=== PATIENT | female | born 1950 | race African-American/Black ===

== ENCOUNTER 2017-07-07 04:55 | Inpatient (IN) ==
[2017-07-07] MEDS ORDERED: DILTIAZEM 50 MG/10 ML VIAL IV STA ×3 (05:18→07:02)
[2017-07-07] MEDS ORDERED: DILTIAZEM INJ 100 MG in SODIUM CHLORIDE 0.9% 100 ML IV SCH (05:30)
[2017-07-07 05:45] LABS: Basophils % 0.2 % (0.0-0.8); Eosinophils # 0.2 10*3/uL (0.0-0.87); Eosinophils % 1.6 % (0.00-10.9); Hemoglobin 11.8 GM/DL (12.0-16.0); Immature Granulocytes % 0.2 %; Immature Granulocytes Absolute 0.02 #; Lymphocytes # 1.6 10*3/uL (1.4-4.0); Lymphocytes % 16.5 % (21.3-54.2); Mean Corpuscular HGB Conc 31.1 GM/DL (32-36); Mean Corpuscular Hemoglobin 27 PG (27-34); Mean Corpuscular Volume 87.6 FL (87-102); Mean Platelet Volume 11.3 FL (9.6-12.0); Monocytes # 0.7 10*3/uL (0.11-0.8); Monocytes % 7.3 % (1.7-12.7); Neutrophils # 7.1 10*3/uL (1.4-7.4); Neutrophils % 74.2 % (38.7-73.9); Platelet Count 331 T/CUMM (130-400); Red Blood Count 4.34 MC/CUMM (3.8-5.5); Red Cell Distribution Width 17.6 % (9.3-17.3); White Blood Count 9.6 T/CUMM (4-12)
[2017-07-07] MEDS ORDERED: SODIUM CHLORIDE 0.9% 1,000 ML IV STA (05:58)
[2017-07-07 06:21] LABS: Alanine Aminotransferase 38 U/L (13-56); Albumin 3.8 G/DL (3.4-5.0); Alkaline Phosphatase 101 U/L (45-117); Aspartate Amino Transferase 24 U/L (0-37); Bilirubin,Total < 0.39 MG/DL (0.2-1.0); Blood Urea Nitrogen 21 MG/DL (7-18); Calcium 10.2 MG/DL (8.5-10.1); Glucose 177 MG/DL (74-106); Osmolality,Calculated 283.5 MOS/KG (273-304); Potassium 4.1 MMOL/L (3.5-5.1); Sodium 139 MMOL/L (136-145); Total Protein 8.2 G/DL (6.4-8.3); Troponin I Only < 0.015 NG/ML (0.00-0.045)
[2017-07-07] MEDS ORDERED: ACETAMINOPHEN 325 MG TABLET PO PRN (07:53)
[2017-07-07] MEDS ORDERED: ONDANSETRON 4 MG/2 ML VIAL IV PRN (07:53)
[2017-07-07] MEDS ORDERED: NITROGLYCERIN SL 0.4 MG TABLET SL PRN (07:55)
[2017-07-07] MEDS ORDERED: PROMETHAZINE 25 MG TABLET PO PRN (07:55)
[2017-07-07] MEDS ORDERED: FLUTICASONE 50 MCG NASAL SPRAY 16 GM BOTTLE BOTH NARES PRN (07:55)
[2017-07-07] MEDS ORDERED: GLUCAGON 1 MG VIAL IM PRN (07:57)
[2017-07-07] MEDS ORDERED: DEXTROSE 50% 25 GM/50 ML VIAL IV PRN (07:57)
[2017-07-07] MEDS ORDERED: INSULIN ASPART 5 UNIT SUBCUT SCH (08:00)
[2017-07-07] MEDS ORDERED: METOPROLOL SUCCINATE XL 100 MG TABLET PO SCH (09:00)
[2017-07-07] MEDS ORDERED: SPIRONOLACTONE 25 MG TABLET PO SCH (09:00)
[2017-07-07] MEDS ORDERED: INSULIN GLARGINE HUM REC ANLOG 45 UNIT SUBCUT SCH (09:00)
[2017-07-07] MEDS ORDERED: QUINAPRIL HCL 20 MG PO SCH (09:00)
[2017-07-07] MEDS ORDERED: METOPROLOL TARTRATE 50 MG TABLET PO STA (10:16)
[2017-07-07] MEDS: PANTOPRAZOLE 40 MG TABLET PO SCH (13:03)
[2017-07-07] MEDS: INSULIN LISPRO 100 UNIT/ML SUBCUT SCH ×3 (13:08→20:37)
[2017-07-07] MEDS: POTASSIUM CHLORIDE 20 MEQ TABLET PO SCH (14:30)
[2017-07-07] MEDS: FUROSEMIDE 40 MG TABLET PO SCH ×2 (14:31→20:38)
[2017-07-07] MEDS: ASCORBIC ACID 500 MG TABLET PO SCH (14:32)
[2017-07-07] MEDS: AMIODARONE 200 MG TABLET PO SCH ×2 (14:32→20:37)
[2017-07-07] MEDS: CETIRIZINE 10 MG TABLET PO SCH (14:32)
[2017-07-07] MEDS: FOLIC ACID 1 MG TABLET PO SCH (14:33)
[2017-07-07] MEDS: DOCUSATE SODIUM 100 MG CAPSULE PO SCH ×2 (14:33→20:38)
[2017-07-07] MEDS: ATORVASTATIN 20 MG TABLET PO SCH (14:33)
[2017-07-07] MEDS: OMEGA 3 ACID ETHYL ESTERS 1 GM CAPSULE PO SCH (14:33)
[2017-07-07] MEDS: ASPIRIN EC 81 MG TABLET PO SCH (14:33)
[2017-07-07] MEDS: CYCLOBENZAPRINE 10 MG TABLET PO SCH ×3 (14:37→20:38)
[2017-07-07] MEDS: FERROUS SULFATE 325 MG TABLET PO SCH ×2 (14:37→20:38)
[2017-07-07 17:49] LABS: Apearance,Urine CLEAR (Clear); Bilirubin,Urine Negative (Negative); Blood, Urine Negative (Negative); Glucose,Urine (UA) Negative (Negative); Ketones,Urine Negative (Negative); Nitrite,Urine Negative (Negative); Protein,Urine Negative; RBC,Urine <1 /HPF (0-4); Squamous Epithelial Cell,Urine Occasional /HPF (0-10); Urine Color Yellow (Yellow); Urine Urobilinogen < 2.0 EU/DL (0.2-1.0); WBC,Urine <1 /HPF (0-6)
[2017-07-07] MEDS ORDERED: ALBUTEROL 2.5 MG/3 ML NEB RESP TX PRN (19:00)
[2017-07-08 06:12] LABS: Basophils % 0.3 % (0.0-0.8); Eosinophils # 0.2 10*3/uL (0.0-0.87); Eosinophils % 2.9 % (0.00-10.9); Hematocrit 31.6 VOL% (35.7-47.0); Hemoglobin 10.2 GM/DL (12.0-16.0); Immature Granulocytes % 0.2 %; Immature Granulocytes Absolute 0.01 #; Lymphocytes # 0.9 10*3/uL (1.4-4.0); Lymphocytes % 15.8 % (21.3-54.2); Mean Corpuscular HGB Conc 32.3 GM/DL (32-36); Mean Corpuscular Hemoglobin 28 PG (27-34); Mean Corpuscular Volume 85.2 FL (87-102); Mean Platelet Volume 10.6 FL (9.6-12.0); Monocytes # 0.4 10*3/uL (0.11-0.8); Monocytes % 5.9 % (1.7-12.7); Neutrophils # 4.4 10*3/uL (1.4-7.4); Neutrophils % 74.9 % (38.7-73.9); Platelet Count 279 T/CUMM (130-400); Red Blood Count 3.71 MC/CUMM (3.8-5.5); Red Cell Distribution Width 17.6 % (9.3-17.3); White Blood Count 5.9 T/CUMM (4-12)
[2017-07-08 06:30] LABS: Calcium 8.9 MG/DL (8.5-10.1); Osmolality,Calculated 290.4 MOS/KG (273-304); Potassium 3.9 MMOL/L (3.5-5.1)
[2017-07-08 06:34] LABS: Calcium 8.7 MG/DL (8.5-10.1); Osmolality,Calculated 293.1 MOS/KG (273-304); Risk Ratio 3.6; VLDL CHOLESTEROL 34.4 MG/DL
[2017-07-08] MEDS ORDERED: LEVOTHYROXINE 25 MCG TABLET PO SCH (07:00)
[2017-07-08] MEDS ORDERED: ERGOCALCIFEROL 50,000 UNIT CAPSULE PO SCH (07:55)
[2017-07-08] MEDS: PANTOPRAZOLE 40 MG TABLET PO SCH (08:11)
[2017-07-08] MEDS: ATORVASTATIN 20 MG TABLET PO SCH (08:11)
[2017-07-08] MEDS: OMEGA 3 ACID ETHYL ESTERS 1 GM CAPSULE PO SCH (08:11)
[2017-07-08] MEDS: CYCLOBENZAPRINE 10 MG TABLET PO SCH (08:12)
[2017-07-08] MEDS: DOCUSATE SODIUM 100 MG CAPSULE PO SCH (08:12)
[2017-07-08] MEDS: ASPIRIN EC 81 MG TABLET PO SCH (08:12)
[2017-07-08] MEDS: FERROUS SULFATE 325 MG TABLET PO SCH (08:12)
[2017-07-08] MEDS: FUROSEMIDE 40 MG TABLET PO SCH (08:12)
[2017-07-08] MEDS: CETIRIZINE 10 MG TABLET PO SCH (08:12)
[2017-07-08] MEDS: ASCORBIC ACID 500 MG TABLET PO SCH (08:12)
[2017-07-08] MEDS: POTASSIUM CHLORIDE 20 MEQ TABLET PO SCH (08:12)
[2017-07-08] MEDS: FOLIC ACID 1 MG TABLET PO SCH (08:12)
[2017-07-08] MEDS: INSULIN LISPRO 100 UNIT/ML SUBCUT SCH ×2 (08:13→12:11)
[2017-07-08] MEDS ORDERED: AMIODARONE 200 MG TABLET PO SCH (09:00)
[2017-07-08] MEDS ORDERED: INSULIN GLARGINE 100 UNIT/ML SUBCUT SCH (09:00)
[2017-07-08] MEDS ORDERED: MAGNESIUM SULF RIDER 2 GM in PREMIX 1 EACH IV ONE (10:17)
[2017-07-08] MEDS ORDERED: MAGNESIUM CHLORIDE 64 MG TABLET PO SCH (10:30)
[2017-07-08 12:14] VITALS: BP 139/72
[2017-07-08] MEDS ORDERED: METOPROLOL TARTRATE 25 MG TABLET PO SCH (21:00)
[2017-07-15] MEDS ORDERED: AMIODARONE 200 MG TABLET PO SCH (09:00)
== END 2017-07-08 13:20 | disposition home or self-care (01) | DRG 309 ==
LOC: N.ED 04:55 → N.EDINP 07:33 → N.TELES 12:46
PROVIDERS: ADMIT Internal Medicine; ATTEND Internal Medicine

== ENCOUNTER 2021-11-25 11:45 | Inpatient (IN) ==
[2021-11-25] MEDS ORDERED: DILTIAZEM 25 MG/5 ML VIAL IV STA (12:10)
[2021-11-25] MEDS: DILTIAZEM INJ 100 MG in SODIUM CHLORIDE 0.9% 100 ML IV SCH ×2 (12:30→18:51)
[2021-11-25 12:35] LABS: PT Patient Result 11.4 SECS (10.1-12.1); Partial Thromboplastin Time 26.6 SECS (23.7-32.9)
[2021-11-25 12:37] LABS: Bilirubin,Total 0.8 MG/DL (0.20-1.00); Potassium 3.7 MMOL/L (3.5-5.1); Thyroid Stimulating Hormone 6.42 uIU/ml (0.358-3.74); Total Protein 7.8 G/DL (6.4-8.2)
[2021-11-25 12:40] LABS: Basophils % 0.4 % (0.0-0.8); Eosinophils # 0.1 10*3/uL (0.0-0.87); Hematocrit 44.9 VOL% (35.7-47.0); Hemoglobin 13.6 GM/DL (12.0-16.0); Immature Granulocytes % 0.3 %; Immature Granulocytes Absolute 0.02 #; Lymphocytes # 1.1 10*3/uL (1.4-4.0); Mean Corpuscular HGB Conc 30.3 GM/DL (32-36); Mean Corpuscular Volume 89.1 FL (87-102); Monocytes # 0.7 10*3/uL (0.11-0.8); Monocytes % 9.3 % (1.7-12.7); Platelet Count 344 T/CUMM (130-400); Red Blood Count 5.04 MC/CUMM (3.8-5.5); Red Cell Distribution Width 17.5 % (9.3-17.3); White Blood Count 7.2 T/CUMM (4-12)
[2021-11-25] MEDS ORDERED: ONDANSETRON 4 MG/2 ML VIAL IV PRN (13:52)
[2021-11-25] MEDS ORDERED: DEXTROSE 10% 250 ML BAG IV PRN (13:52)
[2021-11-25] MEDS ORDERED: ACETAMINOPHEN 325 MG TABLET PO PRN (13:52)
[2021-11-25] MEDS ORDERED: GLUCAGON 1 MG VIAL IM PRN (13:52)
[2021-11-25] MEDS ORDERED: hydrALAZINE 20 MG/1 ML VIAL IV PRN (13:52)
[2021-11-25] MEDS ORDERED: ENOXAPARIN 40 MG/0.4 ML SYRINGE SUBCUT SCH (14:00)
[2021-11-25 14:26] LABS: Free T4 (Free Thyroxine) 1.53 NG/DL (0.76-1.46)
[2021-11-25] MEDS ORDERED: ENOXAPARIN 100 MG/ML SYRINGE SUBCUT ONE (16:00)
[2021-11-25] MEDS ORDERED: INFLUENZA VIRUS VACCINE 0.5 ML SYRINGE IM ONE (17:07)
[2021-11-25] MEDS: INSULIN LISPRO 100 UNIT/ML SUBCUT SCH ×2 (17:52→21:57)
[2021-11-25 19:39] LABS: Bacteria,Urine Occasional /HPF (Few); Glucose,Urine (UA) >1000 mg/dL (Negative); Hyaline Casts,Urine 1 /LPF (0-3); Ketones,Urine 15 mg/dL (Negative); Mucus,Urine Occasional /LPF (Occasional); Protein,Urine 30 mg/dL (Negative); RBC,Urine <1 /HPF (0-4); Squamous Epithelial Cell,Urine Occasional /HPF (0-10); Urine Appearance Clear (Clear); Urine Color Yellow (Yellow); Urine pH 6.5 (4.5-8.0)
[2021-11-25 19:40] LABS: Bilirubin,Urine Negative (Negative); Blood, Urine Negative (Negative); Nitrite,Urine Negative (Negative); Urine Urobilinogen 0.2 eU/dL (<2.0)
[2021-11-25 20:58] LABS: Barbiturates Screen,Urine Negative (Negative); Benzodiazepines Screen,Urine Negative (Negative); Cannabinoid Screen,Urine Negative (Negative); Opiate Screen,Urine Negative (Negative); Phencyclidine Screen,Urine Negative (Negative)
[2021-11-25] MEDS: ASCORBIC ACID 500 MG TABLET PO SCH (21:59)
[2021-11-25] MEDS: AMIODARONE 200 MG TABLET PO SCH (21:59)
[2021-11-25] MEDS: FUROSEMIDE 40 MG TABLET PO SCH (22:12)
[2021-11-26] MEDS: DILTIAZEM INJ 100 MG in SODIUM CHLORIDE 0.9% 100 ML IV SCH ×3 (01:22→14:26)
[2021-11-26] MEDS: ENOXAPARIN 150 MG/ML SYRINGE SUBCUT SCH ×2 (04:25→14:28)
[2021-11-26 05:09] LABS: Basophils % 0.6 % (0.0-0.8); Eosinophils # 0.1 10*3/uL (0.0-0.87); Eosinophils % 1.6 % (0.00-10.9); Hematocrit 40.2 VOL% (35.7-47.0); Hemoglobin 12.3 GM/DL (12.0-16.0); Immature Granulocytes % 0.1 %; Immature Granulocytes Absolute 0.01 #; Lymphocytes # 1.2 10*3/uL (1.4-4.0); Lymphocytes % 17.7 % (21.3-54.2); Mean Corpuscular HGB Conc 30.6 GM/DL (32-36); Mean Corpuscular Volume 89.5 FL (87-102); Mean Platelet Volume 10.3 FL (9.6-12.0); Monocytes # 0.6 10*3/uL (0.11-0.8); Monocytes % 8.9 % (1.7-12.7); Neutrophils % 71.1 % (38.7-73.9); Platelet Count 293 T/CUMM (130-400); Red Blood Count 4.49 MC/CUMM (3.8-5.5); Red Cell Distribution Width 17.3 % (9.3-17.3)
[2021-11-26 05:32] LABS: Osmolality,Calculated 286.1 MOS/KG (273-304); Potassium 3.7 MMOL/L (3.5-5.1); Risk Ratio 3.5; VLDL Cholesterol 28.4 MG/DL
[2021-11-26] MEDS: ASCORBIC ACID 500 MG TABLET PO SCH ×2 (08:22→21:46)
[2021-11-26] MEDS: FUROSEMIDE 40 MG TABLET PO SCH ×2 (08:23→22:16)
[2021-11-26] MEDS: ATORVASTATIN 40 MG TABLET PO SCH (08:24)
[2021-11-26] MEDS: AMIODARONE 200 MG TABLET PO SCH (08:24)
[2021-11-26] MEDS: SPIRONOLACTONE 25 MG TABLET PO SCH (08:24)
[2021-11-26] MEDS: PANTOPRAZOLE 40 MG TABLET PO SCH (08:24)
[2021-11-26] MEDS: ENALAPRIL 20 MG TABLET PO SCH (08:24)
[2021-11-26] MEDS: INSULIN LISPRO 100 UNIT/ML SUBCUT SCH ×4 (08:42→21:46)
[2021-11-26] MEDS: LEVOTHYROXINE 50 MCG TABLET PO SCH (08:46)
[2021-11-26] MEDS ORDERED: METOPROLOL SUCCINATE XL 25 MG TABLET PO SCH (09:30)
[2021-11-26] MEDS ORDERED: SIMETHICONE CHEW 125 MG TABLET PO PRN (12:21)
[2021-11-26] MEDS ORDERED: AMIODARONE INJ 150 MG in DEXTROSE 5% 100 ML IV ONE (13:31)
[2021-11-26] MEDS ORDERED: AMIODARONE INJ 450 MG in DEXTROSE 5% 241 ML IV SCH (14:00)
[2021-11-26] MEDS: METOPROLOL SUCCINATE XL 25 MG TABLET PO SCH (21:46)
[2021-11-27] MEDS: AMIODARONE INJ 450 MG in DEXTROSE 5% 241 ML IV SCH ×2 (00:29→14:04)
[2021-11-27 04:40] LABS: Basophils % 0.6 % (0.0-0.8); Eosinophils # 0.2 10*3/uL (0.0-0.87); Eosinophils % 2.6 % (0.00-10.9); Hematocrit 40.5 VOL% (35.7-47.0); Hemoglobin 12.4 GM/DL (12.0-16.0); Immature Granulocytes % 0.6 %; Immature Granulocytes Absolute 0.04 #; Lymphocytes # 1.5 10*3/uL (1.4-4.0); Lymphocytes % 21.7 % (21.3-54.2); Mean Corpuscular HGB Conc 30.6 GM/DL (32-36); Mean Corpuscular Volume 88.6 FL (87-102); Monocytes # 0.7 10*3/uL (0.11-0.8); Neutrophils % 64.5 % (38.7-73.9); Platelet Count 309 T/CUMM (130-400); Red Blood Count 4.57 MC/CUMM (3.8-5.5); Red Cell Distribution Width 17.3 % (9.3-17.3)
[2021-11-27 04:54] LABS: Calcium 8.5 MG/DL (8.5-10.1); Potassium 3.2 MMOL/L (3.5-5.1)
[2021-11-27] MEDS: DILTIAZEM INJ 100 MG in SODIUM CHLORIDE 0.9% 100 ML IV SCH (06:10)
[2021-11-27] MEDS: ENOXAPARIN 150 MG/ML SYRINGE SUBCUT SCH ×2 (06:12→14:25)
[2021-11-27] MEDS: LEVOTHYROXINE 50 MCG TABLET PO SCH (06:46)
[2021-11-27] MEDS: PANTOPRAZOLE 40 MG TABLET PO SCH (09:30)
[2021-11-27] MEDS: ASPIRIN EC 81 MG TABLET PO SCH (09:30)
[2021-11-27] MEDS: SPIRONOLACTONE 25 MG TABLET PO SCH (09:30)
[2021-11-27] MEDS: ASCORBIC ACID 500 MG TABLET PO SCH ×2 (09:30→22:11)
[2021-11-27] MEDS: AMIODARONE 200 MG TABLET PO SCH (09:30)
[2021-11-27] MEDS: ATORVASTATIN 40 MG TABLET PO SCH (09:30)
[2021-11-27] MEDS: ENALAPRIL 20 MG TABLET PO SCH (11:20)
[2021-11-27] MEDS: FUROSEMIDE 40 MG TABLET PO SCH ×2 (11:20→22:12)
[2021-11-27] MEDS: METOPROLOL SUCCINATE XL 50 MG TABLET PO SCH ×2 (11:20→22:12)
[2021-11-27] MEDS ORDERED: POTASSIUM CHLORIDE 20 MEQ TABLET PO ONE (11:44)
[2021-11-27] MEDS: INSULIN LISPRO 100 UNIT/ML SUBCUT SCH ×4 (13:56→22:11)
[2021-11-27] MEDS: METOPROLOL SUCCINATE XL 25 MG TABLET PO SCH (13:59)
[2021-11-27] MEDS: hydrALAZINE 25 MG TABLET PO SCH ×2 (14:25→22:11)
[2021-11-28] MEDS: ENOXAPARIN 150 MG/ML SYRINGE SUBCUT SCH (02:25)
[2021-11-28] MEDS: AMIODARONE INJ 450 MG in DEXTROSE 5% 241 ML IV SCH (02:27)
[2021-11-28] MEDS: LEVOTHYROXINE 50 MCG TABLET PO SCH (06:28)
[2021-11-28] MEDS ORDERED: METOPROLOL SUCCINATE XL 100 MG TABLET PO SCH (09:00)
[2021-11-28] MEDS: FUROSEMIDE 40 MG TABLET PO SCH (09:31)
[2021-11-28] MEDS: INSULIN LISPRO 100 UNIT/ML SUBCUT SCH ×2 (09:31→12:45)
[2021-11-28] MEDS: SPIRONOLACTONE 25 MG TABLET PO SCH (09:31)
[2021-11-28] MEDS: ATORVASTATIN 40 MG TABLET PO SCH (09:32)
[2021-11-28] MEDS: ASCORBIC ACID 500 MG TABLET PO SCH (09:32)
[2021-11-28] MEDS: ENALAPRIL 20 MG TABLET PO SCH (09:32)
[2021-11-28] MEDS: PANTOPRAZOLE 40 MG TABLET PO SCH (09:32)
[2021-11-28] MEDS: AMIODARONE 200 MG TABLET PO SCH (09:32)
[2021-11-28] MEDS: ASPIRIN EC 81 MG TABLET PO SCH (09:33)
[2021-11-28 09:57] LABS: Calcium 8.2 MG/DL (8.5-10.1); Potassium 3.3 MMOL/L (3.5-5.1)
[2021-11-28 10:08] LABS: Albumin 3.3 G/DL (3.4-5.0); Bilirubin,Direct 0.19 MG/DL (0.0-0.20); Bilirubin,Indirect 0.4 MG/DL (0.0-1.0); Bilirubin,Total 0.6 MG/DL (0.20-1.00); Total Protein 6.4 G/DL (6.4-8.2)
[2021-11-28] MEDS ORDERED: POTASSIUM CHLORIDE 20 MEQ TABLET PO ONE (10:27)
[2021-11-28 12:03] VITALS: BP 102/63
== END 2021-11-28 13:04 | disposition home health service (06) | DRG 309 ==
LOC: EDUNIT# → EDBD → N.EDINP 11:45 → N.ED 11:45 → SUATTDRO 13:52 → N.TELES 15:55 → SUATTDRO 11-26 12:22
PROVIDERS: ADMIT Internal Medicine; ATTEND Internal Medicine Geriatric Medicine

== ENCOUNTER 2021-12-03 13:15 | Inpatient (IN) ==
[2021-12-03] MEDS ORDERED: DILTIAZEM 25 MG/5 ML VIAL IV ONE (13:37)
[2021-12-03] MEDS ORDERED: DILTIAZEM 100 MG VIAL.ADD IV ONE (13:37)
[2021-12-03] MEDS ORDERED: DILTIAZEM 25 MG/5 ML VIAL IV STA (13:55)
[2021-12-03] MEDS ORDERED: DILTIAZEM 50 MG/10 ML VIAL IV STA (14:02)
[2021-12-03] MEDS: DILTIAZEM INJ 100 MG in SODIUM CHLORIDE 0.9% 100 ML IV SCH (14:04)
[2021-12-03 14:46] LABS: Albumin 2.9 G/DL (3.4-5.0); Bilirubin,Total 1.5 MG/DL (0.20-1.00); Calcium 8.8 MG/DL (8.5-10.1); Osmolality,Calculated 287.5 MOS/KG (273-304); Potassium 4.5 MMOL/L (3.5-5.1); Total Protein 6.5 G/DL (6.4-8.2)
[2021-12-03 15:18] LABS: Basophils % 0.4 % (0.0-0.8); Eosinophils # 0.2 10*3/uL (0.0-0.87); Eosinophils % 1.8 % (0.00-10.9); Hematocrit 23.8 VOL% (35.7-47.0); Hemoglobin 6.8 GM/DL (12.0-16.0); Immature Granulocytes % 0.5 %; Immature Granulocytes Absolute 0.04 #; Lymphocytes % 12.1 % (21.3-54.2); Mean Corpuscular HGB Conc 28.6 GM/DL (32-36); Mean Corpuscular Volume 95.6 FL (87-102); Mean Platelet Volume 11.3 FL (9.6-12.0); Monocytes # 0.8 10*3/uL (0.11-0.8); Monocytes % 9.2 % (1.7-12.7); NRBC # 0.21 10*3/uL; Platelet Count 326 T/CUMM (130-400); Red Blood Count 2.49 MC/CUMM (3.8-5.5); White Blood Count 8.4 T/CUMM (4-12)
[2021-12-03 15:53] LABS: Basophils % 0.5 % (0.0-0.8); Eosinophils # 0.1 10*3/uL (0.0-0.87); Eosinophils % 1.3 % (0.00-10.9); Hematocrit 22.6 VOL% (35.7-47.0); Hemoglobin 6.7 GM/DL (12.0-16.0); Immature Granulocytes % 0.4 %; Immature Granulocytes Absolute 0.03 #; Lymphocytes # 1.2 10*3/uL (1.4-4.0); Lymphocytes % 14.1 % (21.3-54.2); Mean Corpuscular HGB Conc 29.6 GM/DL (32-36); Mean Corpuscular Volume 90.8 FL (87-102); Mean Platelet Volume 10.2 FL (9.6-12.0); Monocytes # 0.8 10*3/uL (0.11-0.8); Monocytes % 10.1 % (1.7-12.7); NRBC # 0.21 10*3/uL; Neutrophils % 73.6 % (38.7-73.9); Platelet Count 342 T/CUMM (130-400); Red Blood Count 2.49 MC/CUMM (3.8-5.5); Red Cell Distribution Width 17.8 % (9.3-17.3); White Blood Count 8.2 T/CUMM (4-12)
[2021-12-03] MEDS ORDERED: ONDANSETRON 4 MG/2 ML VIAL IV PRN (16:15)
[2021-12-03] MEDS ORDERED: GLUCAGON 1 MG VIAL IM PRN (16:15)
[2021-12-03] MEDS ORDERED: DEXTROSE 10% 250 ML BAG IV PRN (16:22)
[2021-12-03] MEDS ORDERED: NITROGLYCERIN SL 0.4 MG TABLET SL PRN (16:23)
[2021-12-03] MEDS ORDERED: PROMETHAZINE 25 MG TABLET PO PRN (16:23)
[2021-12-03] MEDS ORDERED: AMIODARONE INJ 150 MG in DEXTROSE 5% 100 ML IV ONE (16:25)
[2021-12-03 16:29] LABS: Ferritin 31.6 ng/mL (8-252)
[2021-12-03] MEDS ORDERED: AMIODARONE INJ 450 MG in DEXTROSE 5% 241 ML IV SCH (16:30)
[2021-12-03] MEDS: INSULIN REGULAR 100 UNIT/ML SUBCUT SCH ×2 (17:53→21:38)
[2021-12-03] MEDS ORDERED: ALBUTEROL 2.5 MG/3 ML NEB RESP TX PRN (19:00)
[2021-12-03] MEDS ORDERED: FUROSEMIDE 40 MG TABLET PO SCH (21:00)
[2021-12-03] MEDS: LEFLUNOMIDE 10 MG TABLET PO SCH ×2 (21:30→22:51)
[2021-12-03] MEDS: sulfaSALAzine 500 MG TABLET PO SCH (21:30)
[2021-12-03] MEDS: DOCUSATE SODIUM 100 MG CAPSULE PO SCH (21:30)
[2021-12-03] MEDS: METOPROLOL SUCCINATE XL 100 MG TABLET PO SCH (21:31)
[2021-12-03] MEDS: FERROUS SULFATE 325 MG TABLET PO SCH (21:31)
[2021-12-03] MEDS: CYCLOBENZAPRINE 10 MG TABLET PO SCH (21:31)
[2021-12-04] MEDS: AMIODARONE INJ 450 MG in DEXTROSE 5% 241 ML IV SCH ×2 (01:02→18:09)
[2021-12-04 04:44] LABS: Basophils % 0.3 % (0.0-0.8); Eosinophils # 0.2 10*3/uL (0.0-0.87); Hematocrit 22.4 VOL% (35.7-47.0); Hemoglobin 6.7 GM/DL (12.0-16.0); Immature Granulocytes % 0.7 %; Immature Granulocytes Absolute 0.06 #; Lymphocytes # 1.3 10*3/uL (1.4-4.0); Lymphocytes % 14.5 % (21.3-54.2); Mean Corpuscular HGB Conc 29.9 GM/DL (32-36); Mean Platelet Volume 11.4 FL (9.6-12.0); Monocytes % 10.3 % (1.7-12.7); NRBC # 0.34 10*3/uL; Neutrophils % 72.2 % (38.7-73.9); Platelet Count 362 T/CUMM (130-400); Red Blood Count 2.49 MC/CUMM (3.8-5.5); Red Cell Distribution Width 17.7 % (9.3-17.3); White Blood Count 9.2 T/CUMM (4-12)
[2021-12-04 05:06] LABS: Albumin 2.8 G/DL (3.4-5.0); Bilirubin,Total 1.5 MG/DL (0.20-1.00); Calcium 8.7 MG/DL (8.5-10.1); Osmolality,Calculated 286.3 MOS/KG (273-304); Potassium 3.7 MMOL/L (3.5-5.1); Total Protein 6.7 G/DL (6.4-8.2)
[2021-12-04 05:18] LABS: Risk Ratio 3.94; Thyroid Stimulating Hormone 9.2 uIU/ml (0.358-3.74)
[2021-12-04] MEDS: LEVOTHYROXINE 88 MCG TABLET PO SCH (06:00)
[2021-12-04] MEDS: PANTOPRAZOLE 40 MG TABLET PO SCH (08:23)
[2021-12-04] MEDS: INSULIN LISPRO 100 UNIT/ML SUBCUT SCH ×3 (09:22→18:06)
[2021-12-04] MEDS: INSULIN REGULAR 100 UNIT/ML SUBCUT SCH ×4 (09:24→22:07)
[2021-12-04] MEDS: sulfaSALAzine 500 MG TABLET PO SCH ×2 (09:25→21:06)
[2021-12-04] MEDS: ATORVASTATIN 40 MG TABLET PO SCH (09:26)
[2021-12-04] MEDS: POTASSIUM CHLORIDE 20 MEQ TABLET PO SCH (09:26)
[2021-12-04] MEDS: METOPROLOL SUCCINATE XL 100 MG TABLET PO SCH ×2 (09:26→21:07)
[2021-12-04] MEDS: FUROSEMIDE 40 MG TABLET PO SCH ×2 (09:26→18:18)
[2021-12-04] MEDS: CETIRIZINE 10 MG TABLET PO SCH (09:26)
[2021-12-04] MEDS: CYCLOBENZAPRINE 10 MG TABLET PO SCH ×3 (09:26→21:07)
[2021-12-04] MEDS: SPIRONOLACTONE 25 MG TABLET PO SCH (09:26)
[2021-12-04] MEDS: FERROUS SULFATE 325 MG TABLET PO SCH ×2 (09:26→21:06)
[2021-12-04] MEDS: DOCUSATE SODIUM 100 MG CAPSULE PO SCH ×2 (09:26→21:06)
[2021-12-04] MEDS: INSULIN GLARGINE 100 UNIT/ML SUBCUT SCH (09:28)
[2021-12-04] MEDS ORDERED: EPOETIN ALFA-EPBX 4,000 UNIT/ML VIAL IV PRN (11:00)
[2021-12-04] MEDS ORDERED: EPOETIN ALFA-EPBX 3,000 UNIT/ML VIAL IV ONE ×2 (12:08→17:30)
[2021-12-04] MEDS: DILTIAZEM INJ 100 MG in SODIUM CHLORIDE 0.9% 100 ML IV SCH (17:17)
[2021-12-05 04:52] LABS: Basophils # 0.1 10*3/uL (0.0-0.2); Basophils % 0.5 % (0.0-0.8); Eosinophils # 0.2 10*3/uL (0.0-0.87); Hematocrit 22.3 VOL% (35.7-47.0); Hemoglobin 6.9 GM/DL (12.0-16.0); Immature Granulocytes % 0.7 %; Immature Granulocytes Absolute 0.07 #; Lymphocytes # 1.2 10*3/uL (1.4-4.0); Lymphocytes % 12.2 % (21.3-54.2); Mean Corpuscular HGB Conc 30.9 GM/DL (32-36); Mean Corpuscular Volume 90.7 FL (87-102); Monocytes # 1.1 10*3/uL (0.11-0.8); Monocytes % 11.2 % (1.7-12.7); NRBC # 0.58 10*3/uL; Neutrophils % 73.4 % (38.7-73.9); Platelet Count 377 T/CUMM (130-400); Red Blood Count 2.46 MC/CUMM (3.8-5.5); Red Cell Distribution Width 18.2 % (9.3-17.3); White Blood Count 10.1 T/CUMM (4-12)
[2021-12-05 05:12] LABS: Albumin 2.7 G/DL (3.4-5.0); Bilirubin,Total 1.6 MG/DL (0.20-1.00); Calcium 8.5 MG/DL (8.5-10.1); Osmolality,Calculated 280.4 MOS/KG (273-304); Potassium 3.6 MMOL/L (3.5-5.1); Total Protein 6.3 G/DL (6.4-8.2)
[2021-12-05] MEDS: AMIODARONE INJ 450 MG in DEXTROSE 5% 241 ML IV SCH ×2 (05:24→19:37)
[2021-12-05] MEDS: LEVOTHYROXINE 88 MCG TABLET PO SCH (05:29)
[2021-12-05] MEDS: sulfaSALAzine 500 MG TABLET PO SCH ×2 (09:22→21:12)
[2021-12-05] MEDS: FUROSEMIDE 40 MG TABLET PO SCH ×2 (09:22→17:03)
[2021-12-05] MEDS: CETIRIZINE 10 MG TABLET PO SCH (09:22)
[2021-12-05] MEDS: METOPROLOL SUCCINATE XL 100 MG TABLET PO SCH ×2 (09:22→21:13)
[2021-12-05] MEDS: PANTOPRAZOLE 40 MG TABLET PO SCH (09:22)
[2021-12-05] MEDS: DOCUSATE SODIUM 100 MG CAPSULE PO SCH ×2 (09:22→21:12)
[2021-12-05] MEDS: FERROUS SULFATE 325 MG TABLET PO SCH ×2 (09:22→21:12)
[2021-12-05] MEDS: CYCLOBENZAPRINE 10 MG TABLET PO SCH ×3 (09:22→21:12)
[2021-12-05] MEDS: POTASSIUM CHLORIDE 20 MEQ TABLET PO SCH (09:23)
[2021-12-05] MEDS: ATORVASTATIN 40 MG TABLET PO SCH (09:23)
[2021-12-05] MEDS: SPIRONOLACTONE 25 MG TABLET PO SCH (09:23)
[2021-12-05] MEDS: INSULIN REGULAR 100 UNIT/ML SUBCUT SCH ×4 (09:24→21:14)
[2021-12-05] MEDS: INSULIN LISPRO 100 UNIT/ML SUBCUT SCH ×3 (09:24→17:12)
[2021-12-05] MEDS: INSULIN GLARGINE 100 UNIT/ML SUBCUT SCH (12:40)
[2021-12-05] MEDS: DILTIAZEM INJ 100 MG in SODIUM CHLORIDE 0.9% 100 ML IV SCH (18:00)
[2021-12-05] MEDS ORDERED: INSULIN GLARGINE 100 UNIT/ML SUBCUT SCH (21:00)
[2021-12-06 04:47] LABS: Basophils % 0.4 % (0.0-0.8); Eosinophils # 0.1 10*3/uL (0.0-0.87); Eosinophils % 1.2 % (0.00-10.9); Hematocrit 23.9 VOL% (35.7-47.0); Hemoglobin 7.3 GM/DL (12.0-16.0); Immature Granulocytes % 0.8 %; Immature Granulocytes Absolute 0.09 #; Lymphocytes # 1.2 10*3/uL (1.4-4.0); Lymphocytes % 10.9 % (21.3-54.2); Mean Corpuscular HGB Conc 30.5 GM/DL (32-36); Mean Corpuscular Volume 90.9 FL (87-102); Mean Platelet Volume 10.9 FL (9.6-12.0); Monocytes # 1.1 10*3/uL (0.11-0.8); NRBC # 0.67 10*3/uL; Neutrophils % 76.7 % (38.7-73.9); Platelet Count 413 T/CUMM (130-400); Red Blood Count 2.63 MC/CUMM (3.8-5.5); Red Cell Distribution Width 19.3 % (9.3-17.3); White Blood Count 11.3 T/CUMM (4-12)
[2021-12-06 05:11] LABS: Albumin 2.8 G/DL (3.4-5.0); Bilirubin,Total 1.8 MG/DL (0.20-1.00); Calcium 8.4 MG/DL (8.5-10.1); Osmolality,Calculated 276.8 MOS/KG (273-304); Potassium 3.2 MMOL/L (3.5-5.1); Total Protein 6.7 G/DL (6.4-8.2)
[2021-12-06] MEDS: LEVOTHYROXINE 88 MCG TABLET PO SCH (05:23)
[2021-12-06] MEDS ORDERED: POTASSIUM CHLORIDE 20 MEQ TABLET PO ONE (07:24)
[2021-12-06] MEDS: INSULIN LISPRO 100 UNIT/ML SUBCUT SCH ×2 (08:03→13:06)
[2021-12-06] MEDS: INSULIN REGULAR 100 UNIT/ML SUBCUT SCH ×2 (08:04→13:15)
[2021-12-06] MEDS: FERROUS SULFATE 325 MG TABLET PO SCH (08:12)
[2021-12-06] MEDS: METOPROLOL SUCCINATE XL 100 MG TABLET PO SCH (08:13)
[2021-12-06] MEDS: DOCUSATE SODIUM 100 MG CAPSULE PO SCH (08:13)
[2021-12-06] MEDS: ATORVASTATIN 40 MG TABLET PO SCH (08:13)
[2021-12-06] MEDS: FUROSEMIDE 40 MG TABLET PO SCH (08:14)
[2021-12-06] MEDS: SPIRONOLACTONE 25 MG TABLET PO SCH (08:15)
[2021-12-06] MEDS: PANTOPRAZOLE 40 MG TABLET PO SCH (08:15)
[2021-12-06] MEDS: CETIRIZINE 10 MG TABLET PO SCH (08:16)
[2021-12-06] MEDS: CYCLOBENZAPRINE 10 MG TABLET PO SCH (08:17)
[2021-12-06] MEDS: sulfaSALAzine 500 MG TABLET PO SCH (08:17)
[2021-12-06] MEDS: POTASSIUM CHLORIDE 20 MEQ TABLET PO SCH (08:22)
[2021-12-06] MEDS ORDERED: EPOETIN ALFA-EPBX 3,000 UNIT/ML VIAL IV ONE (09:00)
[2021-12-06] MEDS ORDERED: AMIODARONE 200 MG TABLET PO SCH (09:00)
[2021-12-06 11:28] VITALS: BP 104/77
[2021-12-07] MEDS ORDERED: POLYETHYLENE GLYCOL POWDER 17 GM PACK PO SCH (09:00)
== END 2021-12-06 14:47 | disposition home health service (06) | DRG 309 ==
LOC: EDBD → SUATTDRO → EDUNIT# → N.ED 13:15 → N.EDINP 16:36 → SUATTDRO 16:36 → N.EDINP 23:28 → N.TELEN 23:33
PROVIDERS: ADMIT Family Medicine; ATTEND Internal Medicine